=== PATIENT | male | born 1995 | race Caucasian/White ===

== ENCOUNTER 2019-06-26 10:09 | Emergency (ER) | payer SELFPAY ==
--- NOTE | 2019-06-26 10:26 | ED Physician Documentation ---
General Adult - HISTORIAN Historian: patient - HPI Stated Complaint: dizziness Chief Complaint: General Adult Onset: days ago (4) Timing: still present Severity: moderate Further Comments: yes (Pt is a 24 yo male who had sinus pressure over the weekend. This am he became lightheaded and weak and diaphoretic and "felt off," and couldn't think straight. Sinus pain/congestion had actually gotten better when the dizziness occurred. Pt had diarrhea x 2 this am.) - ROS CONST: weakness EYES/ENT: other (sinu) CVS/RESP: none GI/: diarrhea MS/SKIN/LYMPH: none NEURO/PSYCH: dizziness - PAST HX Past History: none Allergies/Adverse Reactions: Allergies Allergy/AdvReac Type Severity Reaction Status Date / Time Penicillins Allergy Anaphylaxis Verified 06/26/19 10:27 Home Medications: Ambulatory Orders Medication Instructions Recorded Sulfamethoxazole/Trimethoprim 1 each PO Q12H #20 tablet 06/26/19 [Bactrim Ds] - SOCIAL HX Smoking History: cigarettes - FAMILY HX Family History: No - REVIEWED ASSESSMENTS Nursing Assessment Reviewed: Yes Vitals Reviewed: Yes Progress - Progress Progress: NS 1 L IVF in ER. Rx Bactrim DS. Take one every 12 hours for 10 days. - EKG/XRAY/CT EKG: rhythm (sinus bradycardia, HR=56; otherwise normal EKG.) General Adult Physical Exam - PHYSICAL EXAM GENERAL APPEARANCE: mild distress EENT: eye inspection normal, ENT inspection normal, pharynx normal NECK: normal inspection, supple RESPIRATORY: no resp distress, chest non-tender, breath sounds normal CVS: reg rate & rhythm, heart sounds normal ABDOMEN: soft, no organomegaly, normal bowel sounds BACK: normal inspection, no CVA tenderness SKIN: warm/dry, normal color EXTREMITIES: non-tender, normal range of motion, no evidence of injury NEURO: oriented X3, motor nml, sensation nml Discharge Clincal Impression: sinusitis, diarrhea Prescriptions: Sulfamethoxazole/Trimethoprim [Bactrim Ds] 1 each PO Q12H #20 tablet Referrals: Primary Doctor,No [Primary Care Provider] - 2 Days Condition: Stable Disposition: 01 HOME, SELF-CARE Decision to Admit: NO Decision Time: 12:45
[2019-06-26] MEDS ORDERED: 0.9 % SODIUM CHLORIDE 1,000 ML IV ONE (10:30)
[2019-06-26 10:55] LABS: eGFR (Non-African) > 60
[2019-06-26 11:05] LABS: BASOPHILS % 0.3 % (0.0-1.5); GIANT PLATELETS PRESENT (NEGATIVE); NEUTROPHILS # 4.4 # k/uL (1.4-7.7); SEGMENTED NEUTROPHILS % 66 % (39-79)
[2019-06-26 12:50] VITALS: BP 122/74
[2019-06-26 13:08] LABS: APPEARANCE,URINE CLEAR (CLEAR); COLOR,URINE YELLOW (YELLOW); OCCULT BLOOD,URINE NEGATIVE (NEGATIVE)
[2019-06-26 13:09] LABS: UROBILINOGEN URINE 0.2 Eu (0.2-1.0)
== END 2019-06-26 12:43 | disposition home or self-care (01) ==
LOC: ED 10:09
DX: J32.9 Chronic sinusitis, unspecified (principal); R19.7 Diarrhea, unspecified; F17.210 Nicotine dependence, cigarettes, uncomplicated
CPT/HCPCS: 80053; 81002; 85025; 93005; 96360; 99283; 99284; J7030; S1016